=== PATIENT | female | born 1940 | race Caucasian/White ===

== ENCOUNTER → 2019-02-19 | Outpatient (CLI) | payer OTHER ==
[~2019-02-19] MED LIST: Advil200 M1 PO; Calcium 250+D1 EACH PO; Cortisporin Ear10 M1; Desyrel50 MG; Diovan Hct 1601 EACH PO; ESTRTP VAG; LATA.005SO BOTHEYES; METR70GEL VAG; NAPR220 PO; VITAMIN D31000 UNIT PO
== END | disposition home or self-care (01) ==
LOC: LAB EV 15:15 → LAB SHORT 15:15
DX: R35.0 Frequency of micturition (principal)
CPT/HCPCS: 87077; 87086; 87186

== ENCOUNTER → 2021-04-07 | Outpatient (CLI) | payer OTHER | LOC: LAB SHORT 11:18 | DX: D48.5 Neoplasm of uncertain behavior of skin (principal); Z88.2 Allergy status to sulfonamides | CPT/HCPCS: 88305 ==

== ENCOUNTER 2022-01-14 20:06 | Emergency (ER) | payer OTHER ==
[~2022-01-14] VITALS: Ht 160 cm; Wt 72.6 kg
[2022-01-14] MEDS ORDERED: TRAM50 PO (21:25)
[2022-01-14] MEDS ORDERED: OLMESARTAN MEDO20 MG PO (21:26)
[2022-01-14] MEDS ORDERED: NEURONTIN300 MG PO (21:26)
[2022-01-14] MEDS ORDERED: Percocet 5-3251 EACH PO (23:12)
== END 2022-01-15 00:10 | disposition home or self-care (01) ==
LOC: ER 20:06
DX: S42.351A Displaced comminuted fracture of shaft of humerus, right arm, initial encounter for closed fracture (principal); I10 Essential (primary) hypertension; Z88.2 Allergy status to sulfonamides; Z79.899 Other long term (current) drug therapy; W10.9XXA Fall (on) (from) unspecified stairs and steps, initial encounter
CPT/HCPCS: 29105; 73060; 73070; 96374-59; 96375-59; 96376-59; 99283-25; A9270; J1885; J3010

== ENCOUNTER → 2024-06-24 | Outpatient (CLI) | payer OTHER ==
[~2024-06-24] MED LIST changes: +NEURONTIN300 MG PO; +OLMESARTAN MEDO20 MG PO; +Percocet 5-3251 EACH PO; +TRAM50 PO
[2024-06-26 14:31] LABS: Stool Occult Bld Immuno 1 Negative (NEGATIVE)
== END ==
LOC: LAB 11:30 → LAB SHORT 11:30
PROVIDERS: Internal Medicine
DX: Z12.11 Encounter for screening for malignant neoplasm of colon (principal)
CPT/HCPCS: G0328